=== PATIENT | male | born 1955 | race Caucasian/White ===

== ENCOUNTER 2017-11-27 10:53 | Observation (INO) | payer BC, OTHER ==
[2017-11-27] MEDS ORDERED: Nitroglycerin TAB 0.4 MG* 0.4 MG TAB SL ONE (11:30)
[2017-11-27] MEDS: Aspirin 81 mg CHEW TAB* 81 MG TAB.CHEW PO ONE ×2 (11:31→11:35)
[2017-11-27 12:28] LABS: ABS Basophils 0.1 10^3/ul (0-0.2); ABS Eosinophils 0.4 10^3/ul (0-0.6); ABS Lymphocytes 1.2 10^3/ul (1.0-4.8); ABS Monocytes 1.1 10^3/ul (0-0.8); ABS Neutrophils 6.6 10^3/ul (1.5-7.7); ABS Nucleated RBC 0 10^3/ul; Eosinophil % 4.6 % (0-6); Hematocrit 42 % (42-52); Hemoglobin 14.3 g/dl (14.0-18.0); Lymphocyte % 12.9 % (25-47); Mean Corpuscular HGB Conc 34 g/dl (31-36); Mean Corpuscular Hemoglobin 33 pg (27-31); Mean Corpuscular Volume 96 fL (80-94); Mean Platelet Volume 7.9 um3 (7.4-10.4); Nucleated Red Blood Cells % 0; Platelet Count 311 10^3/ul (150-450); Red Blood Count 4.33 10^6/ul (4.0-5.4); Red Cell Distribution Width 14 % (10.5-15); White Blood Count 9.5 10^3/ul (3.5-10.8)
--- NOTE | 2017-11-27 12:45 | RAD ---
Indication: Chest pain, shortness of breath, possible myocardial infarction. Comparison: December 01, 2004 Technique: Upright AP 1230 hours Report: Elevated lung volumes and rarefaction of the interstitial markings. 5 mm nodular density at the RIGHT lung base which may represent a nipple shadow or true pulmonary nodule. Negative for pleural effusion or pneumothorax. The heart, pulmonary vasculature, and mediastinal contours are unremarkable. Multiple healed RIGHT rib fractures noted. IMPRESSION: 1. Stigmata of probable chronic obstructive pulmonary disease. 2. Potential small nodule at the RIGHT lung base. Consider repeat exam with nipple markers to differentiate between a nipple shadow and a true pulmonary nodule.
[2017-11-27] MEDS ORDERED: Al Hydrox/Mg Hydrox/Simet LIQ* 30 ML UDC PO PRN (13:38)
[2017-11-27] MEDS ORDERED: Acetaminophen TAB* 325 MG PO PRN (13:38)
[2017-11-27] MEDS ORDERED: Albuterol 2.5 MG/3 ML NEB.SOL* (0.083%) INH PRN (13:38)
[2017-11-27] MEDS ORDERED: Clobetasol 0.05% OINT* 30 GM TUBE TOPICAL PRN (13:53)
[2017-11-27] MEDS ORDERED: Nitroglycerin TAB 0.4 MG* 0.4 MG TAB SL PRN (14:03)
--- NOTE | 2017-11-27 15:26 | RAD ---
INDICATION: Repeat exam with nipple marker to further assess potential pulmonary nodule COMPARISON: 1226 hours exam of the same date. TECHNIQUE: Dual energy PA and routine lateral views of the chest were obtained. Nipple markers utilized. REPORT: Accounting for change in position with abduction of the shoulders on the current exam and arms down position on the prior exam the previously noted density corresponds with the patient's RIGHT nipple. On the current exam a similar symmetric finding is seen on the LEFT corresponding with the LEFT nipple without concern. Elevated lung volumes and both diffuse mild prominence of the interstitial markings and patchy rarefaction of the mid to upper lung zone interstitial markings. The lungs and pleural spaces are clear. Negative for pneumothorax. The heart, pulmonary vasculature, and mediastinal contours are unremarkable. Healed RIGHT rib fractures noted. IMPRESSION: 1. Previously noted nodule corresponds with the patient's nipple without concern. 2. Stigmata of obstructive lung disease. No acute pulmonary or cardiac process evident.
--- NOTE | 2017-11-27 16:22 | HP ---
CC: Jaqui Baez NP * HISTORY AND PHYSICAL: DATE OF ADMISSION: 11/27/17 ATTENDING PRIMARY CARE PROVIDER: Nurse Practitioner, Jaqui Baez. ATTENDING PHYSICIAN WHILE IN THE HOSPITAL: Dr. Pola Pinto * (dictated by Missy Mcrae NP) CHIEF COMPLAINT: Chest pain. HISTORY OF PRESENT ILLNESS: Mr. Braswell is a 62-year-old gentleman who carries a past medical history of hypertension, hyperlipidemia, COPD, hypothyroid, enlarged prostate, and history of gout who presented to the emergency room from his primary care physician's office. He had an appointment at the [facility] today and discussed with his primary care physician how he had been having episodes of chest pain on and off for approximately the past 3 weeks. He states that nothing makes it worse, nothing makes it better. He states that sometimes he gets the pain with ambulation and sometimes when he is just sitting on the chair watching TV. He does report that sometimes the pain radiates into his left arm and he does experience left arm numbness. He also reports that he has had episodes of dizziness with the chest pain. He reports that the pain comes and goes on its own. He reports that he does not need to sit or rest when he develops a chest pain. He also reports that the chest pain lasts approximately 30 minutes at each time. He denies any shortness of breath at night. He denies any orthopnea. He does report that he has been feeling run down for approximately the past 2 weeks and when he does experience the chest pain he rates the pain at level 7 as an aching chest pain radiating in the mid sternal to the left chest. He reports he has not awoke at night with any episodes of the chest pain. He denies any diaphoresis or shortness of breath with the chest pain. He does report that his father at the age of 56 from a myocardial infarction. He reports that prior to age 56 his father had several heart attacks. Given his symptoms of recurrent chest pain and family history the emergency room asked us to evaluate him for admission to rule out acute coronary syndrome. PAST MEDICAL HISTORY: Significant for: 1. Hypertension. 2. Hyperlipidemia. 3. COPD. 4. Hypothyroidism. 5. Enlarged prostate. 6. Gout. PAST SURGICAL HISTORY: Significant for: 1. Carpal tunnel release. 2. Hernia repair. MEDICATIONS: Home medications include: 1. Tamsulosin 0.8 mg p.o. daily. 2. Pravastatin 20 mg p.o. daily. 3. Aspirin 325 mg daily. 4. Claritin as needed. 5. Levothyroxine 88 mcg p.o. daily. 6. Colchicine 2 tablets p.o. daily as needed. 7. Amlodipine 5 mg p.o. daily. 8. Tylenol 50 mg p.o. b.i.d. 9. Vitamin D. 10. Clobetasol 0.05% ointment. 11. Lidex 0.05 cream. ALLERGIES TO MEDICATIONS: 1. LISINOPRIL. 2. LOSARTAN. 3. SYMBICORT. 4. MORPHINE. FAMILY HISTORY: Father with a history of an AZ at age 56 of which he . Mother with a history of hypertension. No family history of diabetes and unknown family history for cancer. SOCIAL HISTORY: The patient does report he smokes 1 pack per day. He drinks approximately 3 beers daily. No drug use. 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 He is . Surrogate decision maker in the event he is unable to make his own decisions is his son, Nicholas Braswell. REVIEW OF SYSTEMS: The patient denies any recent fevers or illnesses. Denies any loss of appetite. He does report he has had on and off chest pain lasting approximately 30 minutes for the past 2 to 3 weeks. Denies any edema. He does report an occasional cough. Denies any hemoptysis or shortness of breath. Denies any nocturnal dyspnea or exertional shortness of breath. GI: Denies any nausea or vomiting. Denies diarrhea. Denies any abdominal pain. : Denies hematuria or dysuria. Neurological: No focal weakness or sensory loss. Eyes: No visible complaints. ENT: No dysphagia, rhinorrhea, or ear pain. Musculoskeletal: No arthralgias or myalgias. Skin: He does report small generalized mei of eczema. Denies depression or anxiety. PHYSICAL EXAMINATION GENERAL: At this time,Mr. Braswell is a 62-year-old male who appears healthy, lying on the stretcher in the emergency room. He does not appear to be in any acute distress. VITAL SIGNS: Blood pressure 138/82, heart rate is 67, respirations 16, and O2 saturation is 95% on room air, temperature was 97.4. HEENT: Head is atraumatic and normocephalic. Eyes; EOMs are intact. Sclerae anicteric and not pale. Oral mucosa appears to be moist. NECK: Supple. LUNGS: Clear to auscultation bilaterally with a few scattered wheezes. There are no rales or rhonchi. HEART: S1 and S2. Regular, rate, and rhythm. No murmurs, rubs, or gallops. ABDOMEN: Soft, flat, and nontender. Bowel sounds are active x4. EXTREMITIES: Pedal pulses are +2 bilaterally. He is able to move all 4 extremities with 5/5 strength. NEUROLOGIC: He is alert, awake, and oriented x3. Speech is clear. There is no focal deficits. SKIN: Skin is intact. DIAGNOSTIC STUDIES AND LABORATORY DATA: WBCs 9.5, hemoglobin 14.3, hematocrit was 42, platelet count was 311. Sodium 138, potassium 4.2, chloride 106, carbon -dioxide 26, anion gap of 6, BUN 9, creatinine 0.85. Lactic acid was 1.1. Troponin 0.01. ASTs were 17, ALTs were 10. EKG showed a sinus rhythm at a rate of 63. There is no ST elevation noted. Chest x-ray: Radiologist's Impression: 1. Stigmata for probable chronic obstructive pulmonary disease. 2. Potential small nodule in the right lung base, consider repeat exam with nipple markers to differentiate between nipple shadow and true pulmonary nodule. ASSESSMENT AND PLAN: Mr. Braswell is a 62-year-old gentleman who presented to the emergency room today with complaints of intermittent chest pain for approximately the last 3 weeks. We were asked to evaluate due to his family history and comorbid medical conditions given him an increased risk or acute coronary syndrome. He will be admitted under observation for: 1. Chest pain. We will cycle his troponins q.3 hours x2. I will order a nuclear stress test exercise in the morning. We will do a fasting lipid panel. I will continue on aspirin 325 p.o. daily. He can have nitro sublingual 0.4 mg as needed for chest pain. His YASMIN score was a 3 giving him a 13% risk at 14 days of all- cause mortality, new or recurrent AZ, or severe recurrent ischemia requiring urgent revascularization. We will repeat an EKG in the morning. 2. Hypertension. We will continue his atenolol and Norvasc. 3. Hyperlipidemia. We will change him to atorvastatin 80 mg p.o. nightly. 4. Chronic obstructive pulmonary disease. He reports he does not take his Advair at home. He reports that he takes Combivent inhaler and albuterol nebulizer. We will continue him on albuterol nebs q.4 hours as needed for shortness of breath or wheezing. 5. Hypothyroid. We will continue him on his levothyroxine 88 mcg p.o. daily. 6. History of gout. He is currently not experiencing any gout symptoms. We will hold colchicine at this time. He reports he takes this on a p.r.n. basis. 7. Benign prostatic hypertrophy. We will continue him on Flomax. 8. Fluids, electrolytes, and nutrition. We will place him on a heart-healthy, no caffeine diet. 9. Code status. He is a full code. 10. DVT prophylaxis. He scored #3, which puts him at high risk. He will be placed on heparin 5000 units subcu q.8 hours for DVT prophylaxis. 11. Disposition. He will admitted under observation for chest pain. TIME SPENT: Time spent on his admission was 60 minutes. Greater than half that time was spent [id number] with the patient obtaining my history and physical while the other half the time was spent going over the plan of care with the patient and implementing my plan of care. I have discussed this with my attending Dr. Pola Pinto and he is in agreement with my plan. MISSY MCRAE, ZAN [id number]/[facility] #: [id number] DREW
[2017-11-27] MEDS: Heparin VIAL(*) 5000 UNITS/ML VIAL (FIVE THOUSAND) SUBCUT SCH ×2 (18:27→21:04)
[2017-11-27] MEDS: Atenolol TAB* 50 MG PO SCH (21:03)
[2017-11-27] MEDS: Atorvastatin* 80 MG TAB PO SCH (21:03)
[2017-11-28] MEDS: Heparin VIAL(*) 5000 UNITS/ML VIAL (FIVE THOUSAND) SUBCUT SCH ×2 (05:06→14:44)
[2017-11-28 05:45] LABS: ABS Basophils 0.1 10^3/ul (0-0.2); ABS Eosinophils 0.4 10^3/ul (0-0.6); ABS Lymphocytes 1.8 10^3/ul (1.0-4.8); ABS Monocytes 1.3 10^3/ul (0-0.8); ABS Neutrophils 7.5 10^3/ul (1.5-7.7); ABS Nucleated RBC 0 10^3/ul; Hematocrit 43 % (42-52); Hemoglobin 14.7 g/dl (14.0-18.0); Mean Corpuscular HGB Conc 34 g/dl (31-36); Mean Corpuscular Hemoglobin 33 pg (27-31); Mean Corpuscular Volume 97 fL (80-94); Mean Platelet Volume 8.2 um3 (7.4-10.4); Nucleated Red Blood Cells % 0; Platelet Count 300 10^3/ul (150-450); Red Blood Count 4.43 10^6/ul (4.0-5.4); Red Cell Distribution Width 14 % (10.5-15); White Blood Count 11.1 10^3/ul (3.5-10.8)
[2017-11-28] MEDS ORDERED: Levothyroxine TAB* 88 MCG TAB PO SCH (06:00)
[2017-11-28 06:04] LABS: EGFR Non-African American 89.8 (>60)
[2017-11-28] MEDS ORDERED: amLODIPine TAB* 5 MG PO SCH (09:00)
[2017-11-28] MEDS ORDERED: Aspirin EC TAB* 325 MG PO SCH (09:00)
[2017-11-28] MEDS ORDERED: Cholecalciferol TAB* 1000 UNITS PO SCH (09:00)
[2017-11-28] MEDS ORDERED: Tamsulosin CAP* 0.4 MG PO SCH (09:00)
[2017-11-28] MEDS ORDERED: Regadenoson* 0.4 MG/5 ML SYRINGE ONE (09:15)
[2017-11-28] MEDS ORDERED: Aminophylline IV* 25 MG/ML 10 ML VIAL ONE (09:16)
[2017-11-28] MEDS: Atenolol TAB* 50 MG PO SCH (10:44)
--- NOTE | 2017-11-28 10:56 | RAD ---
INDICATION: Chest pain COMPARISON: None TECHNIQUE: A single day SPECT protocol was utilized. Rest images were acquired following the intravenous injection of 10.8 millicuries of technetium 99m tetrofosmin. Pharmacologic stress images were acquired following the intravenous administration of 25.8 millicuries of technetium 99m tetrofosmin. Initially, an exercise examination was planned but the patient could not exercised to a diagnostic level due to leg fatigue and shortness of breath. FINDINGS: There are no defects of the stress-induced or fixed nature. There is diaphragmatic attenuation artifact. The cardiac chamber size is normal. There are no wall motion abnormalities. The ejection fraction is calculated at 69 percent during stress. IMPRESSION: NO DEFECTS OF A STRESS-INDUCED OR FIXED NATURE. ASSESSMENT: LOW-RISK Based on imaging criteria from ACC/AHA 2002 Guideline Update for the Management of Patients With Chronic Stable Angina Table 23. Noninvasive Risk Stratification.
[2017-11-28 17:11] VITALS: BP 90/67
[2017-11-28] MEDS: Atorvastatin* 80 MG TAB PO SCH (17:15)
--- NOTE | 2017-11-29 11:01 | DS ---
AMENDED REPORT NOW INCLUDES COSIGNER DESIGNATION - ESIGNED BEFORE ADJUSTMENTS DISCHARGE SUMMARY: DATE OF ADMISSION: 11/27/17 DATE OF DISCHARGE: 11/28/17 PROVIDER: Elaine Denney NP ATTENDING PHYSICIAN: Dr. Arevalo * (report dictated by Elaine Denney NP). PRIMARY CARE PROVIDERS: ZAN Harrell NP at [facility] DISCHARGE DIAGNOSES: 1. Chest pain, unclear etiology. 2. Chronic obstructive pulmonary disease. 3. Current tobacco abuse. SECONDARY DIAGNOSES: 1. Hypertension. 2. Hyperlipidemia. 3. Hypothyroidism. 4. Enlarged prostate. 5. History of gout. DISCHARGE MEDICATIONS: 1. Tamsulosin 0.8 mg p.o. daily. 2. Pravastatin 20 mg p.o. daily. 3. Aspirin 325 mg p.o. daily. 4. Claritin p.r.n. 5. Levothyroxine 88 mcg p.o. daily. 6. Colchicine 2 tabs p.o. daily as needed. 7. Amlodipine 5 mg p.o. daily. 8. Tylenol 50 mg p.o. b.i.d. 9. Vitamin D. 10. Clobestasol 0.05% ointment p.r.n. 11. Lidex 0.05 cream p.r.n. HISTORY OF PRESENT ILLNESS AND HOSPITAL COURSE: Please see history and physical by Missy Mcrae NP for full admission details, but in summary, this is a 62-year- old male with a past medical history as stated above, who presented to the emergency department from the primary care office and had reported he had been having episodes of chest pain on and off for approximately the past 3 weeks. He reports that nothing makes it worse or makes it better. He reports that he gets the pain mostly when he is just sitting on the chair and watching TV and occasionally with ambulation. He reports the chest pain lasted approximately 30 minutes each time. He denied shortness of breath, but occasionally feels dizzy. He denies any diaphoresis, nausea. The patient presented to the emergency department and he is admitted to the hospitalist service for chest pain, rule out ACS. He has 3 trended troponins which were 0.00, 0.01, and 0.01. He underwent a cardiac nuclear chemical stress test, which the radiologist's portion showed impression: "No defect of a stress induced or fixed nature." Placed him at low risk. The patient was going to undergo an exercise stress test; however, due to his poor exercise capacity, he was switched to a chemical regadenoson test, which showed no evidence of ischemia. The patient continues to smoke. He was noted to have some wheezing this morning in which he was given a nebulizer, which resolved the wheezing. He was strongly encouraged to quit smoking; however, he states he is not interested at this time. Risks and education were given to the patient and again he has no interest in quitting at this time. The patient reports that he has not had any further chest pain since being in the hospital. He believes this is secondary to reflux and has had problems in the past and stopped taking his "reflux" medicine. He was encouraged to avoid fried, sugary, and acidic foods. The patient was recommended to follow up with his primary care within the next 1 to 7 days. The patient has been ambulating around the unit and is stable for discharge to home. REVIEW OF SYSTEMS: A 14-point review of systems was performed. All the pertinent positives and negatives are mentioned in the history of present illness. Otherwise are negative. The patient offers no complaints at this time. PHYSICAL EXAMINATION: Vital Signs: Temperature 97.7, heart rate 65, respirations 18, pulse oximetry 99% on room air, blood pressure 102/61. Appearance: A 62-year- old male, well developed, lying in bed, alert and oriented x3, in no acute distress, very pleasant. HEENT: Head is normocephalic , atraumatic. Pupils are equal and reactive to light. Oropharynx is clear. Moist mucous membranes. Neck: Supple. No JVD noted. Cardiac: S1, S2. Regular rate and rhythm. No murmur, rub or gallop appreciated. No lower extremity edema noted. Lungs: Clear to auscultation bilaterally. Good aeration throughout. No rhonchi, wheezes, rales noted. Abdomen: Soft, nontender, nondistended. Bowel sounds throughout. Extremities: No clubbing, cyanosis or edema. Moves all extremities. Strength is 5/5 throughout. Neuro: Cranial nerves II through XII grossly intact. Moves all extremities: Psych: Appropriate. LABORATORY DATA AND DIAGNOSTIC STUDIES: Sodium 136, potassium 3.6, chloride 103 , carbon dioxide 22, anion gap of 11, BUN 16, creatinine 0.86, glucose 91, calcium 9.1. Troponin 0.00. Triglycerides 118, cholesterol 176, LDL 87, HDL 65. WBC is 11.1, Hgb 14.7, Hct 43, MCV 97, MCH 33, MCHC 34, RDW 14, platelet count 300. DISCHARGE PLAN: 1. Follow up with Ophelia Oh within 1 to 7 days. 2. The patient was instructed with any further concerning symptoms to return to emergency department. It is possible this is secondary to uncontrolled reflux as he did stop his GERD medication. He was encouraged to reduce and avoid fried, acidic and sugary foods. TIME SPENT: Approximately 60 minutes were spent on this discharge. ELAINE DENNEY NP [id number]/[facility] #: [id number] DREW
== END 2017-11-28 18:50 | disposition home or self-care (01) ==
LOC: ED 10:53 → MEDTELE 14:05
PROVIDERS: ADMIT Internal Medicine; ATTEND Internal Medicine
DX: R07.9 Chest pain, unspecified (principal); J44.9 Chronic obstructive pulmonary disease, unspecified; I10 Essential (primary) hypertension; E78.5 Hyperlipidemia, unspecified; E03.9 Hypothyroidism, unspecified; N40.0 Benign prostatic hyperplasia without lower urinary tract symptoms; M10.9 Gout, unspecified; F17.210 Nicotine dependence, cigarettes, uncomplicated; Z79.899 Other long term (current) drug therapy; Z88.8 Allergy status to other drugs, medicaments and biological substances; R06.02 Shortness of breath
CPT/HCPCS: 36415; 71045; 71046; 78452; 80048; 80053; 80061; 83605; 83735; 84484; 85025; 93005; 93017; 99284; A9270-GY; A9502; G0378; J0280; J1644; J2785